=== PATIENT | female | born 2000 | race Caucasian/White ===

== ENCOUNTER 2024-07-12 10:57 | Emergency (ER) | payer OTHER, SELFPAY ==
[2024-07-12 11:01] VITALS: BP 130/76
[2024-07-12 11:03] VITALS: BP 130/76; BMI 18.3
[2024-07-12 11:33] LABS: % Basophils 0.2 % (0-2); % Eosinophils 1.4 % (0-6); % Immature Granulocytes 0.2 % (0-0.5); % Lymphocytes 22.8 % (20.5-51.1); % Monocytes 6.2 % (1.7-9.3); % Neutrophils 69.2 % (42.2-75.2); Absolute Eosinophils 0.1 10^3/uL (0-0.7); Absolute Monocytes 0.3 10^3/uL (0.1-0.6); Hematocrit 38.7 % (37.0-47.0); Hemoglobin 13.3 g/dL (12.0-16.0); Mean Corp Hgb Conc. 34.4 g/dL (33.0-37.0); Mean Corpuscular Hgb 30.5 pg (27.0-31.0); Mean Corpuscular Volume 88.8 fL (81.0-99.0); Mean Platelet Volume 10.4 fL (7.4-10.4); Nucleated Red Blood Cells % 0 %; Platelet Count 176 10^3/uL (130-400); Red Blood Cell Count 4.36 10^6/uL (4.20-5.40); Red Cell Dist. Width 12.1 % (11.5-14.5); White Blood Cell Count 4.4 10^3/uL (4.8-10.8)
--- NOTE | 2024-07-12 11:43 | EDRN ---
Mother in room w/ pt. Jacklyn BAINS in room w/ pt.
[2024-07-12 11:47] LABS: HCG, Serum Qualitative Screen Negative
[2024-07-12 11:51] LABS: ALT (SGPT) 21 U/L (0-35); AST (SGOT) 29 U/L (14-36); Albumin 4.2 g/dl (3.5-5.0); Alkaline Phosphatase 68 U/L (38-126); Blood Urea Nitrogen 13 mg/dl (7-17); Calcium 9.1 mg/dl (8.4-10.2); Carbon Dioxide 25 mmol/L (22-30); Chloride 107 mmol/L (98-107); Estimated Creatinine Clearance 105 ml/min; Glucose 92 mg/dl (70-99); Potassium 3.9 mmol/L (3.5-5.1); Sodium 141 mmol/L (135-145); Total Bilirubin 0.6 mg/dl (0.2-1.3); Total Protein 6.4 g/dl (6.3-8.2); eGFR > 60.00
[2024-07-12 12:00] VITALS: BP 118/82
[2024-07-12 13:00] VITALS: BP 126/75
--- NOTE | 2024-07-12 13:45 | EDRN ---
Pt on leaving for xray complained of nose pain at 4/10 w/ TT sent to Jacklyn BAINS.
[2024-07-12 14:39] VITALS: BP 108/67
--- NOTE | 2024-07-12 14:53 | EDRN ---
14:30 pt asking to eat and ED PCT Cherry asked Jacklyn BAINS if she could and he said yes and pt's mother left to get pt something to eat at this time.
--- NOTE | 2024-07-12 14:59 | ED.GENMED ---
History of Present Illness
General
Chief Complaint: Fainting/Passed Out
Source: patient and family
Exam Limitations: none
Time Seen by Provider: 07/12/24 11:17
Nursing documentation reviewed up to this point in time: agreed with
History of Present Illness
History of Present Illness:
24-year-old female presenting to the emergency department today after episode where she felt dizzy lightheaded was able to sit down before passing out passed out a bystander thought she was shaking and did not think she had a pulse and started doing
CPR which when she woke up did not feel any significant confusion did have similar episodes many times in the past when she had passed out in the past. Denies any ongoing symptoms no preceding chest pain shortness of breath palpitations.
Review of Systems
Review of Systems
Allergies reviewed?: Yes
All Other Systems: ROS reviewed and negative except as documented in HPI and ROS
Phy Exam
Physical Exam
Physical Exam:
GENERAL: Alert , in no apparent distress
EYE: pupils equal and reactive
NECK: Supple, no significant adenopathy.
ENT: o/p clr, mmm.
CARDIAC: Regular rate and rhythm .
LUNGS: Clear breath sounds bilaterally, no acute respiratory distress, no wheezes/rales/rhonchi
ABDOMEN: Soft, without focal tenderness, no r/g, no cvat
NEUROLOGICAL: Alert and oriented, no focal neuro deficits
SKIN: Warm and dry, skin intact.
MUSCULOSKELETAL: No edema, well perfused.
PSYCH: Normal and appropriate interaction.
Course
Orders/Labs/Results
Orders:
Orders
07/12/24 11:00
Electrocardiogram (*1) Urgent
Reason for Study: Chest Pain
Cardiac Monitoring- Treatment ONCE
EKG- Treatment ONCE
07/12/24 11:17
Test Result ONCE
07/12/24 11:25
Beta Hcg Serum Qualitative Screen [HCG, Serum Qualitative Screen] Urgent
CBC/With Diff [Complete Blood Count/With Diff] Urgent
CMP [Comprehensive Metabolic Panel] Urgent
07/12/24 11:55
CR Cervical Spine 2 or 3 Vw Urgent
Reason For Exam: neck pain after syncope
Thoracic Spine 3 Views CR [CR Thoracic Spine 3 Views] Urgent
Comment:
Reason For Exam: mid back painb after syncope
Abnormal Lab Results
07/12/24
11:25
WBC 4.4 L 10^3/uL
(4.8-10.8)
Absolute Lymphs (auto) 1.0 L 10^3/uL
(1.2-3.4)
Creatinine 0.5 L mg/dL
(0.6-1.0)
07/12/24 11:25
07/12/24 11:25
Vital Signs
Initial and Last Documented VS:
Initial Vital Signs
Pulse Resp BP Pulse Ox
89 18 130/76 99
07/12/24 11:01 07/12/24 11:01 07/12/24 11:01 07/12/24 11:01
Last Documented Vital Signs
Temp Pulse Resp BP Pulse Ox
98.6 F 81 19 108/67 99
07/12/24 11:03 07/12/24 14:45 07/12/24 14:45 07/12/24 14:39 07/12/24 14:45
MDM/Problems Addressed
MDM/Problems Addressed:
24-year-old female presenting to the emergency department today after syncopal episode. She felt lightheaded was able to sit down and did pass out bystander was there performed 2 chest compressions she woke up the bystander claimed that she may
have had seizure-like activity for about 2 seconds. Seems less likely be seizure-like activity with no postictal period very brief episode movement. More likely to be related to a syncopal episode. Vital signs normal on arrival labs unremarkable
patient no distress minimal discomfort of the thoracic and cervical spine x-rays performed without acute acute abnormalities. EKG normal patient appears stable for discharge given information for cardiology follow-up. Return precautions given.
*Critical Care Note
Total Time (30-74mins, 75-104mins- exclusive of procedures): Not Applicable
ED Attending Note
-
Portions of this chart may have been created with voice recognition software.� Occasional wrong word or��sound alike� substitutions may have occurred due to the inherent limitations of voice recognition software.
Discharge Plan
Departure
Patient Disposition: Home (Routine Discharge)
Date of Disposition: 07/12/24
Time of Disposition: 15:01
Patient with high blood pressure during this ER visit?: No
Condition: Good
Covid-19: Not Applicable
Discharge Problem:
Syncope
Instructions: Syncope (Fainting) (DC)
Referrals:
Kamini Resendiz CRNP [Family Provider] -
Mackenzie Loo MD [Active] - Follow up in 10 days
Activity Restrictions/Additional Instructions:
You came to the emergency department today with concerns of syncopal episode. Here you have a reassuring assessment. Please follow closely with cardiology. Return for any worsening, new or concerning symptoms.
Interventions
Interventions:
*Risk Screen - Suicide Last Done: 07/12/24 11:03
*General Assessment Last Done: 07/12/24 11:03
*Neglect/Abuse Screening Last Done: 07/12/24 11:03
*ED- Fall Risk Assessment Last Done: 07/12/24 11:03
*ED COVID-19 Vaccine History Last Done: 07/12/24 11:03
ED- Cardiac Assessment Last Done: 07/12/24 11:35
ED- Neurological Assessment Last Done: 07/12/24 11:35
Discharge Date and Time
Print Language: ANGOLAN
[2024-07-12 15:00] VITALS: BP 113/76
== END 2024-07-12 15:30 | disposition home or self-care (01) ==
LOC: EMR 10:57
PROVIDERS: Physician Assistant; EMERGENCY PHYSICIAN Emergency Medicine; FAMILY PHYSICIAN Registered Nurse
DX: R55 Syncope and collapse (principal)
CPT/HCPCS: 99285; 72040; 72072; 80053; 84703; 85025; 93005